=== PATIENT | female | born 1995 | race Caucasian/White ===

== ENCOUNTER 2019-08-10 14:59 | Inpatient (IN) | payer MEDICARE ==
[~2019-08-10] VITALS: Ht 162.6 cm; Wt 72.2 kg
[~2019-08-10 14:59] MED LIST: ALBU90OI INH; Ddavp0.1 MG PO; Desmopressin A0.2 MG PO; Ferosul325 MG PO; MAGOXI400 PO; ONDA4ODT MM; PROM25 PO; PROM25S PR; Protonix40 MG PO; VITAMIN D350000 UNIT PO; ZOLM5 PO; ZONEGRAN
[2019-08-10 15:30] LABS: Calcium, Ionized (POC) 1.15 mmol/L (1.10-1.46); Chloride (POC) 107 mmol/L (98-108); Creatinine (POC) 0.3 mg/dL (0.6-1.0); Glucose (ISTAT POC) 99 mg/dL (70-99); Hemoglobin (POC) 14.6 g/dL (12.0-16.0); Potassium (POC) 3.3 mmol/L (3.5-5.5); Sodium (POC) 145 mmol/L (135-148); Total CO2 (POC) 26 mmol/L (21-32)
[2019-08-10 15:43] LABS: BASOPHILS ABSOLUTE AUTO 0.03 K/mm3 (0.00-0.23); BASOPHILS PERCENT AUTO 0 % (0-2); EOSINOPHILS PERCENT AUTO 1 % (0-6); Hemoglobin 14.2 g/dL (11.5-16.0); IMMATURE GRAN ABSOLUTE AUTO 0.02 K/mm3 (0.00-0.10); IMMATURE GRAN PERCENT AUTO 0 % (0-1); LYMPHOCYTES ABSOLUTE AUTO 3.06 K/mm3 (0.84-5.20); LYMPHOCYTES PERCENT AUTO 34 % (21-46); MONOCYTES ABSOLUTE AUTO 0.56 K/mm3 (0.16-1.47); MONOCYTES PERCENT AUTO 6 % (4-13); Mean Corpuscular HGB 26.7 pg (26.0-34.0); Mean Corpuscular HGB Conc 32.3 g/dL (31.5-36.5); Mean Corpuscular Volume 83 fL (80-100); Mean Platelet Volume 10.5 fL (9.1-12.4); NEUTROPHILS ABSOLUTE AUTO 5.25 K/mm3 (1.96-9.15); NEUTROPHILS PERCENT AUTO 58 % (41-73); Platelet Count 423 K/mm3 (150-400); RDW Coefficient Variation 13.2 % (11.7-14.2); RDW Standard Deviation 39.6 fL (35.1-46.3); Red Blood Cell Count 5.32 M/mm3 (3.80-5.20); White Blood Cell Count 9.02 K/mm3 (4.00-11.30)
[2019-08-10 15:52] LABS: Source, Urine Catheter
[2019-08-10 15:56] LABS: Alanine Aminotransfer (ALT/SGP 60 U/L (12-78); Albumin, Blood 3.2 g/dL (3.4-5.0); Albumin/Globulin Ratio 0.8 (0.8-1.8); Alk Phos 308 U/L (50-136); Anion Gap 5 mmol/L (6-16); Aspartate Aminotrans (AST/SGOT 42 U/L (12-37); Bilirubin, Total 0.8 mg/dL (0.1-1.0); Blood Urea Nitrogen 3 mg/dL (8-24); Bun/Creatinine Ratio 7.6 (12.0-20.0); CO2, Blood 27 mmol/L (21-32); Calcium, Blood 9.8 mg/dL (8.5-10.1); Chloride, Blood 111 mmol/L (98-108); Creatinine, Blood 0.39 mg/dL (0.40-1.00); Globulin, Blood 3.8 g/dL (2.2-4.0); Glomerular Filtration Rate >60 (60-); Glucose, Blood 98 mg/dL (70-99); Potassium, Blood 3.4 mmol/L (3.5-5.5); Sodium, Blood 143 mmol/L (136-145)
[2019-08-10 15:57] LABS: Appearance, Urine Clear (Clear); Bilirubin, Urine Neg (Neg); Blood, Urine Neg (Neg); Color, Urine Yellow (P-Yellow); Glucose Qualitative, Urine Neg (Neg); Ketones, Urine Neg (Neg); Leukocyte Esterase, Urine Neg (Neg); Nitrite, Urine Neg (Neg); Protein, Urine Neg (Neg); Specific Gravity, Urine 1.005 (1.003-1.022); Urobilinogen, Urine NORM (Normal)
[2019-08-10 15:58] LABS: Salicylate <1.7 mg/dL (2.8-20.0)
[2019-08-10 16:00] LABS: Acetaminophen, Random <2.0 ug/mL (10.0-30.0)
[2019-08-10 16:10] LABS: U Amphetamine Screen Not Detected; U Barbituate Screen Not Detected; U Benzodiazapine Screen Not Detected; U Buprenorphine Screen Not Detected; U Cannabinoids Screen Not Detected; U Cocaine Screen Not Detected; U Methadone Screen Not Detected; U Methamphetamine Screen Not Detected; U Opiates Screen Not Detected; U Oxycodone Screen Not Detected; U Phencyclidine Screen Not Detected; U Propoxyphene Screen Not Detected
[2019-08-10 16:10] LABS: CPK Creatine Kinase 25 U/L (26-193)
[2019-08-10 16:11] LABS: Creatine Kinase MB <1.0 ng/mL (0.0-3.6); Creatine Kinase MB Index Unable to Calculate (0.0-4.0)
[2019-08-10 16:26] LABS: Free Thyroxine >8.00 ng/dL (0.70-1.60); Triiodothyronine, Free >30.00 pg/mL (2.18-3.98)
[2019-08-10] MEDS ORDERED: Desmopressin A0.1 MG PO (17:45)
[2019-08-10] MEDS ORDERED: FERSU300 PO (17:47)
[2019-08-10] MEDS ORDERED: VITAMIN D350000 UNIT PO (17:47)
[2019-08-10 18:49] LABS: Magnesium, Blood 1.7 mg/dL (1.6-2.4); Phosphorus, Blood 4.3 mg/dL (2.5-4.9)
--- NOTE | 2019-08-10 20:10 | NUR ---
PT ARRIVED TO ICU 4 FROM ER VIA [facility]. 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 DENIES NAUSEA AT THIS TIME. PT IS ABLE TO MOVE SELF TO BED WITH MINIMAL ASSIST. IV POTASSIUM AND NS RUNNING. PT IS A LITTLE ANXIOUS. STATES SHE HAS LOST 50 LBS IN 6-8 WEEKS. WILL GET PT ADMITTED AND ORIENTED TO ROOM.
--- NOTE | 2019-08-10 22:05 | NUR ---
PT HAS BEEN ABLE TO SNACK AND NOT NAUSEATED. GAVE ATIVAN AND MELATONIN TO HELP WITH SLEEP. PT STATES SHE DOES NOT SLEEP WELL AT HOME.
[2019-08-10 23:35] LABS: Anion Gap 6 mmol/L (6-16); Blood Urea Nitrogen 7 mg/dL (8-24); Bun/Creatinine Ratio 13.6 (12.0-20.0); CO2, Blood 26 mmol/L (21-32); Calcium, Blood 8.5 mg/dL (8.5-10.1); Chloride, Blood 108 mmol/L (98-108); Creatinine, Blood 0.52 mg/dL (0.40-1.00); Glomerular Filtration Rate >60 (60-); Glucose, Blood 159 mg/dL (70-99); Potassium, Blood 4.2 mmol/L (3.5-5.5); Sodium, Blood 140 mmol/L (136-145)
[2019-08-11 06:10] LABS: BASOPHILS ABSOLUTE AUTO 0.02 K/mm3 (0.00-0.23); BASOPHILS PERCENT AUTO 0 % (0-2); EOSINOPHILS ABSOLUTE AUTO 0.05 K/mm3 (0.00-0.68); EOSINOPHILS PERCENT AUTO 1 % (0-6); Hematocrit 34.2 % (33.0-51.0); Hemoglobin 10.9 g/dL (11.5-16.0); IMMATURE GRAN ABSOLUTE AUTO 0.02 K/mm3 (0.00-0.10); IMMATURE GRAN PERCENT AUTO 0 % (0-1); LYMPHOCYTES ABSOLUTE AUTO 2.77 K/mm3 (0.84-5.20); LYMPHOCYTES PERCENT AUTO 36 % (21-46); MONOCYTES ABSOLUTE AUTO 0.27 K/mm3 (0.16-1.47); MONOCYTES PERCENT AUTO 4 % (4-13); Mean Corpuscular HGB 26.9 pg (26.0-34.0); Mean Corpuscular HGB Conc 31.9 g/dL (31.5-36.5); Mean Corpuscular Volume 84 fL (80-100); Mean Platelet Volume 10.6 fL (9.1-12.4); NEUTROPHILS ABSOLUTE AUTO 4.66 K/mm3 (1.96-9.15); NEUTROPHILS PERCENT AUTO 60 % (41-73); Platelet Count 287 K/mm3 (150-400); RDW Coefficient Variation 13.3 % (11.7-14.2); RDW Standard Deviation 41.4 fL (35.1-46.3); Red Blood Cell Count 4.05 M/mm3 (3.80-5.20); White Blood Cell Count 7.79 K/mm3 (4.00-11.30)
--- NOTE | 2019-08-11 06:13 | NUR ---
PT RESTING IN BED. ABLE TO GET A LITTLE SLEEP. HAS NOT BEEN NAUSEATED SINCE ARRIVAL TO ICU. NO COMPLAINTS, NO SIGN OF DISTRESS THIS AM.
[2019-08-11 06:26] LABS: Alanine Aminotransfer (ALT/SGP 39 U/L (12-78); Albumin, Blood 2.4 g/dL (3.4-5.0); Albumin/Globulin Ratio 0.8 (0.8-1.8); Alk Phos 230 U/L (50-136); Anion Gap 5 mmol/L (6-16); Aspartate Aminotrans (AST/SGOT 22 U/L (12-37); Bilirubin, Total 0.3 mg/dL (0.1-1.0); Blood Urea Nitrogen 11 mg/dL (8-24); Bun/Creatinine Ratio 26.8 (12.0-20.0); CO2, Blood 27 mmol/L (21-32); Calcium, Blood 8.7 mg/dL (8.5-10.1); Chloride, Blood 109 mmol/L (98-108); Creatinine, Blood 0.41 mg/dL (0.40-1.00); Globulin, Blood 2.9 g/dL (2.2-4.0); Glomerular Filtration Rate >60 (60-); Glucose, Blood 139 mg/dL (70-99); Potassium, Blood 3.8 mmol/L (3.5-5.5); Sodium, Blood 141 mmol/L (136-145); Total Protein, Blood 5.3 g/dL (6.4-8.2)
--- NOTE | 2019-08-11 08:38 | NUR ---
Recieved report from Airam SANDERSON. Patient laying in bed alert and orient and has been up out of bed with minimal assist of lines. She is on RA and denies any breathing problems and sats 98%. Dr De Jesus by and made Med/tele. She has been up several times in room already. She has 18ga IV in Left breastand is infusing NS at 75ml/hr. She did not like breakfast but drank fluids. Medicated for headache 03/21. She denies any other needs. She moves all extremities well.
--- NOTE | 2019-08-11 10:39 | NUR ---
Dietary in with patient. Dr De Jesus stated ok for patient to have cafeine. She has 1800 of fluids at bedside as per request, 900ml water and 900ml of pepsi. VSS. She has small episode of nausea and medicated with Zofran and she feels better now.
--- NOTE | 2019-08-11 21:45 | NUR ---
UPDATE 2100 - PT OUT OF ROOM, ON PORTABLE TELLY MONITOR, MONITORED BY THE TECH IN PCU TELLY MONITORING. PT WITH AND WILL RETURN AT OR BEFORE 2129. I TOLD HER ABOUT IF SHE WAS HAVING ANY SYMPTOMS TO COME BACK RIGHT AWAY. 2129 - PT BACK IN ROOM, AND HOOKED UP TO OUR TELEMETRY. PT HAS STABLE VITALS UPON RETURNING TO ICU.
[2019-08-12 07:09] LABS: Free Thyroxine 2.59 ng/dL (0.70-1.60)
[2019-08-12 07:11] LABS: Triiodothyronine, Free 7.41 pg/mL (2.18-3.98)
--- NOTE | 2019-08-12 07:13 | NUR ---
Recieved report from Stephanie SANDERSON. Patient has 3000 ml of liquids at bedside. Mateusz is on RA and sats 100%. She is able to communicate her needs and is needy at times. Her left breast right of nipple is red but soft from IV infiltrat. She hyas new 20ga IV in LW and dressinging intact and site WNL's and infusing NS at 75ml/hr. She denies any pain or current nausea. She is independent in room.
[2019-08-12 07:58] LABS: Anion Gap 5 mmol/L (6-16); Blood Urea Nitrogen 9 mg/dL (8-24); Bun/Creatinine Ratio 22.4 (12.0-20.0); CO2, Blood 26 mmol/L (21-32); Chloride, Blood 117 mmol/L (98-108); Glomerular Filtration Rate >60 (60-); Glucose, Blood 99 mg/dL (70-99); Sodium, Blood 148 mmol/L (136-145)
--- NOTE | 2019-08-12 10:24 | NUR ---
Patient is awaiting discharge and for to show up. She has been snacking between naps. VSS. Her IV NS continues at 75ml/hr and she remains independent in room.
[2019-08-12] MEDS ORDERED: METHI10 PO (11:25)
[2019-08-12] MEDS ORDERED: NICO21TP TOP (11:25)
[2019-08-12] MEDS ORDERED: PROP10 PO (11:26)
[2019-08-12] MEDS ORDERED: ONDA4ODT MM (11:26)
--- NOTE | 2019-08-12 12:07 | NUR ---
Dr De Jesus bt and discharged patient. She was set up on portal prior to discharge. She was given written discharge orders and one month meds, and set up Dr dylan estes at 2:45 at [facility]. here to take home. IV pulled intact from LW. and wrapped in coban. She was taken out in wheelchair.
== END 2019-08-12 12:20 | disposition home or self-care (01) | DRG 644 ==
LOC: ER 14:59 → ICUE 18:00 → ICUW 18:14 → ICUE 20:10
PROVIDERS: Nurse Practitioner Acute Care; Physician Assistant; ADMIT Hospitalist
DX: E05.00 Thyrotoxicosis with diffuse goiter without thyrotoxic crisis or storm (principal); E23.2 Diabetes insipidus; F17.210 Nicotine dependence, cigarettes, uncomplicated; H57.04 Mydriasis; F41.1 Generalized anxiety disorder; G40.909 Epilepsy, unspecified, not intractable, without status epilepticus
CPT/HCPCS: 36415; 71045; 76536; 80047; 80048; 80053; 81003; 81025; 82550; 82553; 83605; 83690; 83735; 83935; 84100; 84439; 84443; 84481; 85014; 85025; 93005; 93010; 96361; 96374; 99285-25; A9270; G0480; J1650; J1720; J2060; J2405; J3480; J7030; J7120

== ENCOUNTER 2019-08-17 14:26 | Emergency (ER) | payer SELFPAY ==
[~2019-08-17] VITALS: Ht 162.6 cm; Wt 56.7 kg
[~2019-08-17 14:26] MED LIST changes: +Desmopressin A0.1 MG PO; +FERSU300 PO; +METHI10 PO; +NICO21TP TOP; +PROP10 PO
[2019-08-17 15:21] LABS: BASOPHILS ABSOLUTE AUTO 0.03 K/mm3 (0.00-0.23); BASOPHILS PERCENT AUTO 0 % (0-2); EOSINOPHILS ABSOLUTE AUTO 0.16 K/mm3 (0.00-0.68); EOSINOPHILS PERCENT AUTO 2 % (0-6); Hematocrit 43.7 % (33.0-51.0); Hemoglobin 13.8 g/dL (11.5-16.0); IMMATURE GRAN ABSOLUTE AUTO 0.03 K/mm3 (0.00-0.10); IMMATURE GRAN PERCENT AUTO 0 % (0-1); LYMPHOCYTES ABSOLUTE AUTO 2.87 K/mm3 (0.84-5.20); LYMPHOCYTES PERCENT AUTO 28 % (21-46); MONOCYTES ABSOLUTE AUTO 0.59 K/mm3 (0.16-1.47); MONOCYTES PERCENT AUTO 6 % (4-13); Mean Corpuscular HGB 26.5 pg (26.0-34.0); Mean Corpuscular HGB Conc 31.6 g/dL (31.5-36.5); Mean Corpuscular Volume 84 fL (80-100); Mean Platelet Volume 10.1 fL (9.1-12.4); NEUTROPHILS ABSOLUTE AUTO 6.69 K/mm3 (1.96-9.15); NEUTROPHILS PERCENT AUTO 65 % (41-73); Platelet Count 423 K/mm3 (150-400); RDW Coefficient Variation 13.8 % (11.7-14.2); RDW Standard Deviation 41.7 fL (35.1-46.3); Red Blood Cell Count 5.21 M/mm3 (3.80-5.20); White Blood Cell Count 10.37 K/mm3 (4.00-11.30)
[2019-08-17 15:52] LABS: Alanine Aminotransfer (ALT/SGP 50 U/L (12-78); Albumin, Blood 3.2 g/dL (3.4-5.0); Albumin/Globulin Ratio 0.8 (0.8-1.8); Alk Phos 320 U/L (50-136); Anion Gap 5 mmol/L (6-16); Aspartate Aminotrans (AST/SGOT 25 U/L (12-37); Bilirubin, Total 0.5 mg/dL (0.1-1.0); Blood Urea Nitrogen 5 mg/dL (8-24); Bun/Creatinine Ratio 10.8 (12.0-20.0); CO2, Blood 27 mmol/L (21-32); Calcium, Blood 9.4 mg/dL (8.5-10.1); Chloride, Blood 107 mmol/L (98-108); Creatinine, Blood 0.46 mg/dL (0.40-1.00); Ethanol (Alcohol), Blood, Med <3 mg/dL; Free Thyroxine 2.88 ng/dL (0.70-1.60); Globulin, Blood 3.8 g/dL (2.2-4.0); Glomerular Filtration Rate >60 (60-); Glucose, Blood 101 mg/dL (70-99); Magnesium, Blood 1.9 mg/dL (1.6-2.4); Potassium, Blood 3.8 mmol/L (3.5-5.5); Sodium, Blood 139 mmol/L (136-145); Troponin I <0.015 ng/mL (0.000-0.040)
[2019-08-17 15:55] LABS: Thyroid Stimulating Hormone <0.005 uIU/mL (0.360-4.800)
[2019-08-17 16:22] LABS: Source, Urine Clean Catch
[2019-08-17 16:30] LABS: Bilirubin, Urine Neg (Neg); Blood, Urine 5+ (Neg); Glucose Qualitative, Urine Neg (Neg); Ketones, Urine Neg (Neg); Leukocyte Esterase, Urine Neg (Neg); Nitrite, Urine Neg (Neg); Protein, Urine Neg (Neg); Specific Gravity, Urine 1.005 (1.003-1.022); Urobilinogen, Urine NORM (Normal)
[2019-08-17 16:34] LABS: Appearance, Urine Clear (Clear); Color, Urine Yellow (P-Yellow)
[2019-08-17 16:37] LABS: Bacteria Few /hpf; Red Blood Cells, Urine 0-2 /hpf (0-2); Squamous Epithelial Cells Few /hpf (Few); White Blood Cells, Urine 0-2 /hpf (0-5)
[2019-08-17 16:40] LABS: U Amphetamine Screen Not Detected; U Barbituate Screen Not Detected; U Benzodiazapine Screen Not Detected; U Buprenorphine Screen Not Detected; U Cannabinoids Screen Not Detected; U Cocaine Screen Not Detected; U Methadone Screen Not Detected; U Methamphetamine Screen Not Detected; U Opiates Screen Not Detected; U Oxycodone Screen Not Detected; U Phencyclidine Screen Not Detected; U Propoxyphene Screen Not Detected
== END 2019-08-17 17:31 | disposition home or self-care (01) ==
LOC: ER 14:26
PROVIDERS: Emergency Medicine
DX: E05.90 Thyrotoxicosis, unspecified without thyrotoxic crisis or storm (principal); R11.0 Nausea; F32.9 Major depressive disorder, single episode, unspecified; F41.9 Anxiety disorder, unspecified; E23.2 Diabetes insipidus; F17.210 Nicotine dependence, cigarettes, uncomplicated; Z88.8 Allergy status to other drugs, medicaments and biological substances; Z79.899 Other long term (current) drug therapy
CPT/HCPCS: 36415; 80053; 81001; 81025; 83735; 84439; 84443; 84484; 85025; 93005; 93010; 96374; 99285-25; G0480; J2405

== ENCOUNTER 2022-03-28 18:03 | Emergency (ER) | payer OTHER ==
[~2022-03-28] VITALS: Ht 162.6 cm; Wt 113.4 kg
[2022-03-28 20:30] LABS: Calcium, Ionized (POC) 1.13 mmol/L (1.10-1.46); Chloride (POC) 107 mmol/L (98-108); Creatinine (POC) 0.6 mg/dL (0.6-1.0); Glucose (ISTAT POC) 90 mg/dL (70-99); Hemoglobin (POC) 16.3 g/dL (12.0-16.0); Potassium (POC) 3.6 mmol/L (3.5-5.5); Sodium (POC) 142 mmol/L (135-148); Total CO2 (POC) 23 mmol/L (21-32)
[2022-03-28] MEDS ORDERED: ONDA4ODT SL (21:52)
== END 2022-03-28 22:00 | disposition home or self-care (01) ==
LOC: ER 18:03
PROVIDERS: Emergency Medicine
DX: K52.9 Noninfective gastroenteritis and colitis, unspecified (principal); R06.02 Shortness of breath; R51.9 Headache, unspecified; F17.210 Nicotine dependence, cigarettes, uncomplicated; Z79.899 Other long term (current) drug therapy
CPT/HCPCS: 36415; 71046; 80047; 85014; 96374; 96375; 99283-25; A9270; J1200; J2765; J7030

== ENCOUNTER 2023-09-19 07:55 | Day surgery (SDC) | payer OTHER ==
[~2023-09-19] VITALS: Ht 162.6 cm; Wt 104.5 kg
[~2023-09-19 07:55] MED LIST changes: +ONDA4ODT SL
--- NOTE | 2023-09-19 09:54 | NUR ---
09/19/23 0954 Ramona Toro BECAUSE OF PTS DIABETES INSIPIDUS, THE PT GETS VERY DRY VERY QUICKLY AND REQUESTED A SWAB WITH SOME WATER. PT WAS TOLD NOT TO SWALLOW THE WATER, AND RN WITNESS THE PATIENT SWAB LIPS AND GIVE THE CUP BACK. PT DID NOT DRINK OR SWALLOW ANY WATER.
--- NOTE | 2023-09-19 10:37 | NUR ---
09/19/23 Srinivasa Mckinney LIDOACAINE 2% W/ EPI 1:100,000 MIXED 1:1 W/ NORMAL SALINE TO DILUTE TO LIDOCAINE 1% W/ EPI 1:200,000 FOR [facility]JE[facility] AT [facility] BY DR WADE.
--- NOTE | 2023-09-19 13:30 | NUR ---
09/19/23 1330 Nacho Rogel PT VOIDED CLEAR, YELLOW IN SDU.
[2023-09-19 14:04] VITALS: BP 148/71
== END 2023-09-19 14:17 | disposition home or self-care (01) ==
LOC: ORSCSDS 07:55
PROVIDERS: Otolaryngology
PROC: 0GTG0ZZ Resection of Left Thyroid Gland Lobe, Open Approach (ICD-10-PCS; principal; 2023-09-19 09:15)
PROC: 0GTH0ZZ Resection of Right Thyroid Gland Lobe, Open Approach (ICD-10-PCS; principal; 2023-09-19 09:15)
DX: E05.00 Thyrotoxicosis with diffuse goiter without thyrotoxic crisis or storm (principal); D36.0 Benign neoplasm of lymph nodes; I10 Essential (primary) hypertension; F17.210 Nicotine dependence, cigarettes, uncomplicated; Z79.899 Other long term (current) drug therapy; E66.01 Morbid (severe) obesity due to excess calories; Z68.39 Body mass index [BMI] 39.0-39.9, adult
CPT/HCPCS: 88307; A9270; J0330; J1170; J2405; J2704; J3010; J7120

== ENCOUNTER 2023-10-26 20:32 | Emergency (ER) | payer OTHER ==
[~2023-10-26] VITALS: Ht 162.6 cm; Wt 113.4 kg
[2023-10-26 20:39] VITALS: BP 166/104
[2023-10-26] MEDS ORDERED: AMOCLA875 PO (21:21)
[2023-10-26] MEDS ORDERED: Diflucan150 MG PO (21:21)
[2023-10-27] MEDS ORDERED: COMPAZINE10 MG PO (05:46)
[2023-10-27] MEDS ORDERED: IBU600 MG PO (05:46)
== END 2023-10-26 21:30 | disposition home or self-care (01) ==
LOC: ER 20:32
DX: K02.9 Dental caries, unspecified (principal); E11.9 Type 2 diabetes mellitus without complications; F17.210 Nicotine dependence, cigarettes, uncomplicated
CPT/HCPCS: 64400; 99282-25; A9270

== ENCOUNTER 2023-10-27 03:30 | Emergency (ER) | payer OTHER ==
[~2023-10-27] VITALS: Ht 165.1 cm; Wt 93.0 kg
[~2023-10-27 03:30] MED LIST changes: +AMOCLA875 PO; +Diflucan150 MG PO
[2023-10-27 03:55] LABS: BASOPHILS ABSOLUTE AUTO 0.08 K/mm3 (0.00-0.23); BASOPHILS PERCENT AUTO 1 % (0-2); EOSINOPHILS ABSOLUTE AUTO 0.38 K/mm3 (0.00-0.68); EOSINOPHILS PERCENT AUTO 3 % (0-6); Hematocrit 46.2 % (33.0-51.0); Hemoglobin 15.4 g/dL (11.5-16.0); IMMATURE GRAN ABSOLUTE AUTO 0.07 K/mm3 (0.00-0.10); IMMATURE GRAN PERCENT AUTO 1 % (0-1); LYMPHOCYTES ABSOLUTE AUTO 3.79 K/mm3 (0.84-5.20); LYMPHOCYTES PERCENT AUTO 27 % (21-46); MONOCYTES ABSOLUTE AUTO 0.44 K/mm3 (0.16-1.47); MONOCYTES PERCENT AUTO 3 % (4-13); Mean Corpuscular HGB 28.4 pg (26.0-34.0); Mean Corpuscular HGB Conc 33.3 g/dL (31.5-36.5); Mean Corpuscular Volume 85 fL (80-100); Mean Platelet Volume 9.2 fL (9.1-12.4); NEUTROPHILS ABSOLUTE AUTO 9.46 K/mm3 (1.96-9.15); NEUTROPHILS PERCENT AUTO 66 % (41-73); Platelet Count 364 K/mm3 (150-400); RDW Coefficient Variation 13.9 % (11.7-14.2); RDW Standard Deviation 43.3 fL (35.1-46.3); Red Blood Cell Count 5.43 M/mm3 (3.80-5.20); White Blood Cell Count 14.22 K/mm3 (4.00-11.30)
[2023-10-27 04:14] LABS: Alanine Aminotransfer (ALT/SGP 25 U/L (12-78); Albumin, Blood 3.5 g/dL (3.4-5.0); Alk Phos 121 U/L (50-136); Anion Gap 6 mmol/L (6-16); Aspartate Aminotrans (AST/SGOT 22 U/L (12-37); Bilirubin, Total 0.4 mg/dL (0.1-1.0); Blood Urea Nitrogen 11 mg/dL (8-24); Bun/Creatinine Ratio 15.4 (12.0-20.0); CO2, Blood 27 mmol/L (21-32); Calcium, Blood 7.8 mg/dL (8.5-10.1); Chloride, Blood 98 mmol/L (98-108); Creatinine, Blood 0.71 mg/dL (0.40-1.00); Globulin, Blood 3.5 g/dL (2.2-4.0); Glomerular Filtration Rate 119 (60-); Glucose, Blood 123 mg/dL (70-99); Magnesium, Blood 1.9 mg/dL (1.6-2.4); Potassium, Blood 3.1 mmol/L (3.5-5.5); Sodium, Blood 131 mmol/L (136-145)
[2023-10-27 05:20] VITALS: BP 153/95
[2023-10-27] MEDS ORDERED: COMPAZINE10 MG PO (05:46)
[2023-10-27] MEDS ORDERED: IBU600 MG PO (05:46)
== END 2023-10-27 06:02 | disposition home or self-care (01) ==
LOC: ER 03:30
PROVIDERS: Emergency Medicine
DX: G43.909 Migraine, unspecified, not intractable, without status migrainosus (principal); R11.2 Nausea with vomiting, unspecified; E23.2 Diabetes insipidus; G40.909 Epilepsy, unspecified, not intractable, without status epilepticus; E05.90 Thyrotoxicosis, unspecified without thyrotoxic crisis or storm; Z98.890 Other specified postprocedural states; Z86.011 Personal history of benign neoplasm of the brain; F17.210 Nicotine dependence, cigarettes, uncomplicated; Z88.8 Allergy status to other drugs, medicaments and biological substances
CPT/HCPCS: 70450; 80053; 83735; 85025; 96361; 96374; 96375; 99284-25; A9270; J0780; J7030

== ENCOUNTER → 2024-02-19 | Outpatient (CLI) | payer OTHER ==
[~2024-02-19] MED LIST changes: +COMPAZINE10 MG PO; +IBU600 MG PO
[2024-02-19 09:01] LABS: Free Thyroxine 1.2 ng/dL (0.70-1.60); Thyroid Stimulating Hormone 24.669 uIU/mL (0.360-4.800)
== END | disposition home or self-care (01) ==
LOC: LAB SHORT 08:37 → LAB 08:37
PROVIDERS: Physician Assistant
DX: Z09 Encounter for follow-up examination after completed treatment for conditions other than malignant neoplasm (principal); Z86.39 Personal history of other endocrine, nutritional and metabolic disease
CPT/HCPCS: 84439; 84443; 84481

== ENCOUNTER → 2025-01-20 | Outpatient (CLI) | payer OTHER ==
[~2025-01-20] MED LIST changes: +CYCL10 PO; +NEURONTIN300 MG PO; +Naprosyn500 MG PO
== END ==
LOC: LAB 17:46 → LAB SHORT 17:46
PROVIDERS: Student in an Organized Health Care Education/Training Program
DX: Z12.4 Encounter for screening for malignant neoplasm of cervix (principal)
CPT/HCPCS: G0123

== ENCOUNTER → 2025-05-27 | Outpatient (CLI) | payer OTHER ==
[~2025-05-27] MED LIST changes: +Atarax10 MG PO; +DDAVP0.1 M1 PO; +HYDROCODONE-AC1 EA19 PO; +LEVSOD100 PO; +Norethindrone Ac5 MG PO
== END ==
LOC: LAB SHORT 13:22 → LAB 13:22
DX: N92.0 Excessive and frequent menstruation with regular cycle (principal)
CPT/HCPCS: 88305

== ENCOUNTER 2025-05-28 14:21 | Emergency (ER) | payer OTHER ==
[~2025-05-28] VITALS: Ht 162.6 cm; Wt 117.0 kg
[~2025-05-28 14:21] MED LIST changes: -Atarax10 MG PO; -DDAVP0.1 M1 PO; -HYDROCODONE-AC1 EA19 PO; -LEVSOD100 PO; -Norethindrone Ac5 MG PO
[2025-05-28] MEDS ORDERED: Ondansetron HCl 2 MG / ML 2ML Vial IV PRN (14:50)
[2025-05-28 14:55] LABS: BASOPHILS ABSOLUTE AUTO 0.06 K/mm3 (0.00-0.23); BASOPHILS PERCENT AUTO 1 % (0-2); EOSINOPHILS ABSOLUTE AUTO 0.07 K/mm3 (0.00-0.68); EOSINOPHILS PERCENT AUTO 1 % (0-6); Hematocrit 39.2 % (33.0-51.0); Hemoglobin 12.9 g/dL (11.5-16.0); IMMATURE GRAN ABSOLUTE AUTO 0.03 K/mm3 (0.00-0.10); IMMATURE GRAN PERCENT AUTO 0 % (0-1); LYMPHOCYTES ABSOLUTE AUTO 2.45 K/mm3 (0.84-5.20); LYMPHOCYTES PERCENT AUTO 22 % (21-46); MONOCYTES ABSOLUTE AUTO 0.38 K/mm3 (0.16-1.47); MONOCYTES PERCENT AUTO 4 % (4-13); Mean Corpuscular HGB Conc 32.9 g/dL (31.5-36.5); Mean Corpuscular Volume 83 fL (80-100); NEUTROPHILS ABSOLUTE AUTO 7.97 K/mm3 (1.96-9.15); NEUTROPHILS PERCENT AUTO 73 % (41-73); NRBC ABSOLUTE 0.00 K/mm3 (0.00-0.02); NRBC Auto 0.0 /100 WBC (0.0-0.2); Platelet Count 358 K/mm3 (150-400); RDW Coefficient Variation 16.1 % (11.7-14.2); RDW Standard Deviation 49.1 fL (35.1-46.3)
[2025-05-28] MEDS ORDERED: LEVSOD100 PO (14:59)
[2025-05-28] MEDS ORDERED: DDAVP0.1 M1 PO (15:00)
[2025-05-28] MEDS ORDERED: Norethindrone Ac5 MG PO (15:01)
[2025-05-28] MEDS ORDERED: HYDROCODONE-AC1 EA19 PO (15:01)
[2025-05-28] MEDS ORDERED: NEURONTIN300 MG PO (15:02)
[2025-05-28 15:13] LABS: Alanine Aminotransfer (ALT/SGP 60.0 U/L (12-78); Albumin, Blood 3.8 g/dL (3.4-5.0); Albumin/Globulin Ratio 1.0 (0.8-1.8); Anion Gap 9.0 mmol/L (3-11); Aspartate Aminotrans (AST/SGOT 25.0 U/L (12-37); Bilirubin, Total 0.9 mg/dL (0.1-1.0); Blood Urea Nitrogen 9.0 mg/dL (8-24); CO2, Blood 22.0 mmol/L (21-32); Calcium, Blood 9.3 mg/dL (8.5-10.1); Chloride, Blood 107.0 mmol/L (98-108); Creatinine, Blood 0.72 mg/dL (0.40-1.00); Globulin, Blood 3.8 g/dL (2.2-4.0); Glucose, Blood 106.0 mg/dL (70-99); Potassium, Blood 3.6 mmol/L (3.5-5.5); Sodium, Blood 134.0 mmol/L (136-145); Total Protein, Blood 7.6 g/dL (6.4-8.2)
[2025-05-28] MEDS ORDERED: LORazepam 2 MG/ML 1ML Injection IV ONE (18:00)
[2025-05-28 20:24] VITALS: BP 140/86
[2025-05-28] MEDS ORDERED: Atarax10 MG PO (20:27)
== END 2025-05-28 20:38 | disposition home or self-care (01) ==
LOC: ER 14:21
PROVIDERS: Emergency Medicine
DX: R10.2 Pelvic and perineal pain (principal); F41.9 Anxiety disorder, unspecified; F17.210 Nicotine dependence, cigarettes, uncomplicated; Z79.899 Other long term (current) drug therapy; Z88.5 Allergy status to narcotic agent; Z88.8 Allergy status to other drugs, medicaments and biological substances
CPT/HCPCS: 80053; 83690; 84484; 85025; 93005; 93010; 96374; 99283-25; A9270; J2405

== ENCOUNTER 2025-07-02 08:27 | Day surgery (SDC) | payer OTHER ==
[~2025-07-02] VITALS: Ht 164.7 cm; Wt 116.9 kg
[2025-07-02] VITALS (16 sets, daily range): BP systolic 119–134; BP diastolic 71–87
[~2025-07-02 08:27] MED LIST changes: +Atarax10 MG PO; +CeFAZolin Sodium 2,000 MG in NS 100 ML IV SCH; +DDAVP0.1 M1 PO; +DESMOPRESSIN A0.2 M1 PO; +HYDROCODONE-AC1 EA19 PO; +LEVSOD100 PO; +Norethindrone Ac5 MG PO
--- NOTE | 2025-07-02 09:32 | NUR ---
Ambulatory in Day Surgery. History, Chart, Medications and Allergies reviewed before start of procedure. Patient confirms NPO status and agrees with scheduled surgery. Patient reports completing Chlorhexadine shower X2 prior to admission to hospital. Surgical site prepped with 2% Chlorhexidine cloth wipe. Personal items with .
[2025-07-02] MEDS ORDERED: Bupivacaine 0.5% W/EPI 1:200000 SDV 30 ML Vial ONE (09:46)
[2025-07-02] MEDS ORDERED: Dexmedetomidine HCL 200 MCG / 2 ML ONE (09:59)
[2025-07-02] MEDS ORDERED: Naloxone HCl 0.4MG / ML 1ML Vial IV PRN (10:00)
[2025-07-02] MEDS ORDERED: Ondansetron HCl 2 MG / ML 2ML Vial IV PRN ×2 (10:00→11:00)
[2025-07-02] MEDS ORDERED: Metoclopramide HCl 5MG / ML 2ML Vial IV PRN (10:00)
[2025-07-02] MEDS ORDERED: HYDROmorphone HCl/Pf 1MG SYR IV PRN ×2 (10:00→11:00)
[2025-07-02] MEDS ORDERED: FentaNYL Citrate 50 MCG/ML 2 ML Injection ONE ×3 (10:01→12:16)
[2025-07-02] MEDS ORDERED: SuccINYLCHOLINE Chloride 100 MG/5 ML 5MLSYR ONE (10:29)
[2025-07-02] MEDS ORDERED: Ondansetron HCl 2 MG / ML 2ML Vial ONE ×2 (10:29→12:16)
[2025-07-02] MEDS ORDERED: Rocuronium Bromide 10 MG/ML 5ML Injection IV ONE (10:29)
[2025-07-02] MEDS ORDERED: Dexamethasone Sod Phos 10 MG/ML 1ML VIAL ONE (10:29)
[2025-07-02] MEDS ORDERED: Labetalol HCL 5 MG/ML 4ML Injection (Single Dose) IV PRN (11:00)
[2025-07-02] MEDS ORDERED: FentaNYL Citrate 50 MCG/ML 2 ML Injection IV PRN ×2 (11:00)
[2025-07-02] MEDS ORDERED: Glycopyrrolate 0.2 MG/ML 5ML VIAL ONE (11:29)
[2025-07-02] MEDS ORDERED: Sugammadex Sodium 200 MG/2ML SDV (100 MG/ML) ONE (11:36)
[2025-07-02] MEDS ORDERED: HYDROmorphone HCl/Pf 1MG SYR ONE (12:16)
--- NOTE | 2025-07-02 13:15 | NUR ---
POST OP S/P ROBOTIC LAP HYSTER. PT AWAKE AND ALERT. X4 LAP SITES TO ABD WITH WOUND GLUE ARE CDI. KPAD TO ABD FOR COMFORT. MEGAN PAD IN PLACE WITH SCANT VAGINAL BLEEDING. PT PLACED ON BEDPAN TO ATTEMPT TO VOID. PT JEM SIPS OF CLEARS. PT REPORTS PAIN, BUT MEDICATED IN PACU PRIOR TO ARRIVAL. POST OP VSS AND IN PROGRESS. ORIENTED TO CALL LIGHT AND TREATMENT PLAN. FAMILY AT BEDSIDE FOR SUPPORT. CALL LIGHT WITHIN REACH.
[2025-07-02] MEDS ORDERED: ACET500 PO (13:50)
[2025-07-02] MEDS ORDERED: SIME80CH PO (14:11)
[2025-07-02] MEDS ORDERED: OXYC5 PO (14:11)
[2025-07-02] MEDS ORDERED: IBUP800 PO (14:11)
[2025-07-02] MEDS ORDERED: MIRALAX17 GM PO (14:12)
--- NOTE | 2025-07-02 16:47 | NUR ---
PT DECLINED TO BE STRAIGHT CATHED. PT HAS VOIDED 2 MORE TIMES AND PVRs ARE GETTING LOWER. EDUCATED ON THE IMPORTANCE OF NOT ALLOWING BLADDER TO BECOME OVER DISTENDED AND A CATHETER BEING BENEFICIAL. PT CONTINUED TO DECLINE. DR. STANLEY NOTIFIED.
--- NOTE | 2025-07-02 16:51 | NUR ---
SHIFT SUMMARY S/P ROBOTIC LAP HYSTER. X4 LAP SITES TO ABD ARE CDI. PT WITH SCANT VAGINAL BLEEDING. ROXICODONE + IBUPROFEN FOR PAIN CONTROL. KPAD TO ABD FOR COMFORT AND ABD BINDER FOR COMFORT. PT AMBULATING HALLWAY INDEP. JEM REG DIET. PT VOIDING SPONTANEOUSLY, BUT PVRs ARE GREATER THAN PARAMETERS. SEE NOTE. PT DECLINING STRAIGHT CATH. DR. STANLEY AWARE. POST OP VSS. USES CALL LIGHT APPROPRIATELY.
--- NOTE | 2025-07-02 19:22 | NUR ---
DISCHARGE PT EDUCATED ON AND RECEIVED PRINTED DISCHARGE INSTRUCTIONS AND VERBALIZED AN UNDERSTANDING. IV DC'D. PT LAST VOID WAS APPROX 500CC AND PVR WAS 156CC. PT REQUESTING TO DISCHARGE HOME. PT LEFT WITH ALL PERSONAL BELONGINGS AND SPOUSE TO TAKE PT HOME.
== END 2025-07-02 19:20 | disposition home or self-care (01) ==
LOC: ORSCMMR 08:27 → ORD 08:27 → ORSCMMR 08:28 → ORD 09:15 → SURS 13:01 → ORD 19:20
PROVIDERS: Obstetrics & Gynecology
PROC: 0UT7FZZ Resection of Bilateral Fallopian Tubes, Via Natural or Artificial Opening With Percutaneous Endoscopic Assistance (ICD-10-PCS; principal; 2025-07-02 09:45)
PROC: 0UT9FZZ Resection of Uterus, Via Natural or Artificial Opening With Percutaneous Endoscopic Assistance (ICD-10-PCS; principal; 2025-07-02 09:45)
DX: N92.0 Excessive and frequent menstruation with regular cycle (principal); D25.9 Leiomyoma of uterus, unspecified; Q50.5 Embryonic cyst of broad ligament; E66.01 Morbid (severe) obesity due to excess calories; Z68.41 Body mass index [BMI] 40.0-44.9, adult; F17.290 Nicotine dependence, other tobacco product, uncomplicated; Z79.899 Other long term (current) drug therapy
CPT/HCPCS: 86850; 86900; 86901; 88307; A9270; J0330; J0690; J1100; J1171; J2405; J2704; J3010; J7120